=== PATIENT | male | born 1990 | race African-American/Black ===

== ENCOUNTER 2019-04-15 09:50 | Emergency (ER) | payer OTHER, SELFPAY ==
[2019-04-15] MEDS ORDERED: IBUPROFEN 400 MG TAB ONE (10:47)
--- NOTE | 2019-04-15 11:21 | RAD REPORT ---
EXAM DESCRIPTION: RAD - Femur Right - 04/15/2019 11:16 am CLINICAL HISTORY: PAIN COMPARISON: No comparisons FINDINGS: No fracture or dislocation seen.
--- NOTE | 2019-04-15 11:30 | EDPHYS ---
Physician Documentation [facility] Name: Gary Vallejo Age: 29 yrs Sex: Male : 1990 Arrival Date: 04/15/2019 Time: 09:52 Bed 8 Private MD: ED Physician Hernan Clarke HPI: 04/15 10:23 This 29 yrs old Black Male presents to ER via Ambulatory with complaints of Leg Pain. cp 10:23 The patient presents with pain, that is acute. The complaints affect the right cp quadriceps. Context: resulted from running and fall, the patient can fully bear weight, the patient is able to ambulate. Onset: The symptoms/episode began/occurred last night. Modifying factors: the symptoms are aggravated by movement, weight bearing. Associated signs and symptoms: Pertinent negatives calf tenderness, numbness, warmth, weakness. Treatment prior to arrival includes: no previous treatment. Historical: - Allergies: 10:03 No Known Allergies; aj - Home Meds: 10:03 None [Active]; aj - PMHx: 10:03 None; aj - PSHx: 10:03 None; aj - Immunization history:: Adult Immunizations up to date. - Social history:: Smoking status: Patient/guardian denies using tobacco. - Ebola Screening: : Patient negative for fever greater than or equal to 101.5 degrees Fahrenheit, and additional compatible Ebola Virus Disease symptoms Patient denies exposure to infectious person Patient denies travel to an Ebola-affected area in the 21 days before illness onset No symptoms or risks identified at this time. ROS: 10:35 Constitutional: Negative for body aches, chills, fever, poor PO intake. cp 10:35 Eyes: Negative for injury, pain, redness, and discharge. cp 10:35 ENT: Negative for drainage from ear(s), ear pain, sore throat, difficulty swallowing, difficulty handling secretions. 10:35 Cardiovascular: Negative for chest pain, palpitations. 10:35 Respiratory: Negative for cough, shortness of breath, wheezing. 10:35 Abdomen/GI: Negative for abdominal pain, nausea, vomiting, and diarrhea. 10:35 MS/extremity: Positive for pain, tenderness, of the right quadriceps, Negative for decreased range of motion, deformity, paresthesias. 10:35 Skin: Negative for cellulitis, rash. 10:35 Neuro: Negative for altered mental status, headache, syncope, weakness. 10:35 All other systems are negative. Exam: 10:40 Constitutional: The patient appears in no acute distress, alert, awake, cp non-diaphoretic, non-toxic, well developed, well nourished. 10:40 Head/Face: Normocephalic, atraumatic. cp 10:40 Eyes: Periorbital structures: appear normal, Conjunctiva: normal, no exudate, no injection, Lids and lashes: appear normal, bilaterally. 10:40 ENT: External ear(s): are unremarkable, Nose: is normal, Mouth: Lips: moist, Oral mucosa: moist, Posterior pharynx: is normal, airway is patent, no erythema, no exudate. 10:40 Chest/axilla: Inspection: normal. 10:40 Cardiovascular: Rate: normal, Rhythm: regular. 10:40 Respiratory: the patient does not display signs of respiratory distress, Respirations: normal, no use of accessory muscles, no retractions, no splinting, no tachypnea. 10:40 Abdomen/GI: Inspection: abdomen appears normal, Palpation: abdomen is soft and non-tender, in all quadrants. 10:40 Musculoskeletal/extremity: Extremities: grossly normal except: noted in the right quadriceps: pain, tenderness, There is no evidence of decreased ROM, ecchymosis, swelling, Perfusion: the extremity is normally perfused throughout, Sensation intact. 10:40 Skin: cellulitis, is not appreciated, no rash present. Vital Signs: 10:03 BP 136 / 76; Pulse 71; Resp 19; Temp 98.0; Pulse Ox 97% on R/A; Weight 84.82 kg; Height aj 5 ft. 8 in. (172.72 cm); 10:03 Body Mass Index 28.43 (84.82 kg, 172.72 cm) aj MDM: 10:06 Patient medically screened. cp 11:00 Differential diagnosis: closed fracture, contusion, sprain, strain. cp 11:27 Data reviewed: vital signs, nurses notes, radiologic studies, plain films. cp 11:27 Test interpretation: by ED physician or midlevel provider: plain radiologic studies. cp Counseling: I had a detailed discussion with the patient and/or guardian regarding: the historical points, exam findings, and any diagnostic results supporting the discharge/admit diagnosis, radiology results, the need for outpatient follow up, a family practitioner, to return to the emergency department if symptoms worsen or persist or if there are any questions or concerns that arise at home. Response to treatment: the patient's symptoms have markedly improved after treatment, and as a result, I will discharge patient. 04/15 10:23 Order name: XRAY Femur RIGHT; Complete Time: 11:25 cp 04/15 11:25 Interpretation: Report reviewed. cp 04/15 11:24 Order name: Dipak Wrap: right upper leg; Complete Time: 11:38 cp Administered Medications: 10:33 Drug: Ibuprofen 800 mg Route: PO; sv 11:36 Follow up: Response: No adverse reaction sv Disposition: 12:19 Co-signature as Attending Physician, Hernan Clarke MD I agree with the assessment and [facility] plan of care. Disposition: 04/15/19 11:28 Discharged to Home. Impression: Pain in right leg - upper. - Condition is Stable. - Discharge Instructions: Muscle Strain. - Prescriptions for Ibuprofen 800 mg Oral Tablet - take 1 tablet by ORAL route every 8 hours As needed take with food; 30 tablet. - Medication Reconciliation Form, Thank You Letter, Antibiotic Education, Prescription Opioid Use form. - Follow up: Private Physician; When: 1 week; Reason: pain continues. - Problem is new. - Symptoms have improved. Signatures: Dispatcher [employer] Sada Hannah RN RN sv Myers, Amanda, RN RN aj Anderson, Corey, MD MD cha Page, Corey, PA PA cp Corrections: (The following items were deleted from the chart) 11:40 11:28 04/15/2019 11:28 Discharged to Home. Impression: Pain in right leg - upper. sv Condition is Stable. Forms are Medication Reconciliation Form, Thank You Letter, Antibiotic Education, Prescription Opioid Use. Follow up: Private Physician; When: 1 week; Reason: pain continues. Problem is new. Symptoms have improved. cp
--- NOTE | 2019-04-15 11:30 | ER ---
Nurse's Notes [facility] Name: Gary Vallejo Age: 29 yrs Sex: Male : 1990 Arrival Date: 04/15/2019 Time: 09:52 Bed 8 Private MD: Diagnosis: Pain in right leg-upper Presentation: 04/15 10:01 Presenting complaint: Patient states: "I was running last night when I felt this pain aj in my right upper thigh. It was like a steph horse but not a regular steph horse.IT was worse." No bruising or swelling noted. Ambulated to triage with slow steady gait while using cell phone. Transition of care: patient was not received from another setting of care. Onset of symptoms was April 14, 2019. Risk Assessment: Do you want to hurt yourself or someone else? Patient reports no desire to harm self or others. Initial Sepsis Screen: Does the patient meet any 2 criteria? No. Patient's initial sepsis screen is negative. Does the patient have a suspected source of infection? No. Patient's initial sepsis screen is negative. Care prior to arrival: None. 10:01 Method Of Arrival: Ambulatory 10:01 Acuity: OPAL 5 aj Triage Assessment: 10:03 General: Appears in no apparent distress. comfortable, Behavior is calm, cooperative, aj appropriate for age. Pain: Complains of pain in right quadriceps. Neuro: Level of Consciousness is awake, alert, obeys commands, Oriented to person, place, time, situation, Appropriate for age. Respiratory: Airway is patent Respiratory effort is even, unlabored, Respiratory pattern is regular, symmetrical. Derm: Skin is intact, is healthy with good turgor, Skin is pink, warm \\T\\ dry. normal. Historical: - Allergies: 10:03 No Known Allergies; aj - Home Meds: 10:03 None [Active]; aj - PMHx: 10:03 None; aj - PSHx: 10:03 None; aj - Immunization history:: Adult Immunizations up to date. - Social history:: Smoking status: Patient/guardian denies using tobacco. - Ebola Screening: : Patient negative for fever greater than or equal to 101.5 degrees Fahrenheit, and additional compatible Ebola Virus Disease symptoms Patient denies exposure to infectious person Patient denies travel to an Ebola-affected area in the 21 days before illness onset No symptoms or risks identified at this time. Screenin:30 Abuse screen: Denies threats or abuse. Denies injuries from another. Nutritional sv screening: No deficits noted. Tuberculosis screening: No symptoms or risk factors identified. Fall Risk None identified. Assessment: 10:30 General: Appears in no apparent distress. uncomfortable, well developed, Behavior is sv calm, cooperative, appropriate for age. Pain: Complains of pain in right quadriceps Pain currently is 6 out of 10 on a pain scale. Pain began 1 day ago. Is intermittent, episodic, Aggravated by increased activity, weight bearing. Neuro: Level of Consciousness is awake, alert, obeys commands, Oriented to person, place, time, situation, Moves all extremities. Full function Gait is steady, Speech is normal. Respiratory: Respiratory effort is even, unlabored, Respiratory pattern is regular, symmetrical. Derm: Skin is pink, warm \\T\\ dry. Musculoskeletal: Range of motion: intact in all extremities. Vital Signs: 10:03 BP 136 / 76; Pulse 71; Resp 19; Temp 98.0; Pulse Ox 97% on R/A; Weight 84.82 kg; Height aj 5 ft. 8 in. (172.72 cm); 10:03 Body Mass Index 28.43 (84.82 kg, 172.72 cm) aj ED Course: 09:52 Patient arrived in ED. ds1 10:03 Triage completed. aj 10:03 Arm band placed on left wrist. Patient placed in an exam room. aj 10:06 Hernan Desir PA is PHCP. cp 10:06 Hernan Clarke MD is Attending Physician. cp 10:10 Sada Rinaldi, SANTA is Primary Nurse. sv 10:30 Patient has correct armband on for positive identification. Bed in low position. Call sv light in reach. Door closed. Head of bed elevated. 10:33 Awaiting for x-ray. sv 11:11 X-ray completed. Portable x-ray completed in exam room. Patient tolerated procedure mh1 well. 11:15 XRAY Femur RIGHT In Process Unspecified. EDMS 11:38 No provider procedures requiring assistance completed. Patient did not have IV access sv during this emergency room visit. Dipak wrap to right upper thigh. Administered Medications: 10:33 Drug: Ibuprofen 800 mg Route: PO; sv 11:36 Follow up: Response: No adverse reaction sv Outcome: 11:28 Discharge ordered by . cp 11:39 Discharged to home ambulatory. sv 11:39 Condition: stable 11:39 Discharge instructions given to patient, Instructed on discharge instructions, follow up and referral plans. medication usage, dipak wrap application Demonstrated understanding of instructions, follow-up care, medications, dipak wrap application 11:40 Patient left the ED. sv Signatures: Dispatcher [employer] Sada Hannah RN RN sv Myers, Amanda, RN RN aj Harvey, Martha 1 Radha Han 1 Hernan Desir, ALEJANDRA PA cp
== END 2019-04-15 11:40 | disposition home or self-care (01) ==
LOC: ER 09:50
DX: M79.651 Pain in right thigh (principal)
CPT/HCPCS: 99284